=== PATIENT | male | born 1940 | race Caucasian/White ===

== ENCOUNTER → 2018-08-13 07:04 | Outpatient (CLI) | payer MEDICARE, OTHER, SELFPAY ==
[2018-08-13 08:23] LABS: Alanine Aminotransferase 33 IU/L (21-72); Albumin 4.2 g/dL (3.5-5.0); Albumin Globulin Ratio 1.5 (1.0-2.8); Alkaline Phosphatase 38 U/L (38-126); Aspartate Aminotransferase 28 IU/L (17-59); BUN Creatinine Ratio 21.1 (6-22); Bilirubin Total 0.5 mg/dL (0.2-1.3); Blood Urea Nitrogen 19 mg/dL (9-20); Calcium 9.3 mg/dL (8.4-10.2); Carbon Dioxide 31 mmol/L (22-32); Chloride 103 mmol/L (98-107); Cholesterol 168 mg/dL (140-199); Estimated Glomerular Filt Rate > 60.0 mL/min (>60); Globulin 2.8 g/dL (1.7-4.1); Glucose 104 mg/dL (80-110); HDL Cholesterol 58 mg/dL (40-60); HEMOLYSIS < 15 (0-50); LDL Cholesterol Calculated 98 mg/dL (<100); Potassium 4.3 mmol/L (3.4-5.1); Sodium 143 mmol/L (137-145); Triglycerides 61 mg/dL (35-150)
[2018-08-13 08:50] LABS: Prostate Specific Antigen Scrn 1.48 ng/mL (0.1-4.0)
== END ==
PROVIDERS: PCP Internal Medicine; Visit Provider Internal Medicine
DX: E78.2 Mixed hyperlipidemia (principal); N45.1 Epididymitis; Z12.5 Encounter for screening for malignant neoplasm of prostate
CPT/HCPCS: 36415; 80053; 80061; G0103

== ENCOUNTER → 2019-04-29 08:42 | Outpatient (CLI) | payer MEDICARE, OTHER, SELFPAY | PROVIDERS: PCP Internal Medicine; Visit Provider Physician Assistant | DX: L98.9 Disorder of the skin and subcutaneous tissue, unspecified (principal) | CPT/HCPCS: 87070; 87205 ==

== ENCOUNTER → 2019-09-02 07:02 | Outpatient (CLI) | payer MEDICARE, OTHER, SELFPAY ==
[2019-09-02 09:06] LABS: Alanine Aminotransferase 29 IU/L (<50); Albumin 4.3 g/dL (3.5-5.0); Albumin Globulin Ratio 1.5 (1.0-2.8); Alkaline Phosphatase 46 U/L (38-126); Aspartate Aminotransferase 32 IU/L (17-59); Bilirubin Total 0.6 mg/dL (0.2-1.3); Blood Urea Nitrogen 21 mg/dL (9-20); Calcium 9.2 mg/dL (8.4-10.2); Carbon Dioxide 30 mmol/L (22-32); Chloride 102 mmol/L (98-107); Cholesterol 175 mg/dL (140-199); Estimated Glomerular Filt Rate > 60.0 mL/min (>60); Globulin 2.9 g/dL (1.7-4.1); Glucose 111 mg/dL (80-110); HDL Cholesterol 54 mg/dL (40-60); HEMOLYSIS < 15 (0-50); LDL Cholesterol Calculated 110 mg/dL (<100); Potassium 4.1 mmol/L (3.4-5.1); Sodium 139 mmol/L (137-145); Total Protein 7.2 g/dL (6.3-8.2); Triglycerides 57 mg/dL (35-150)
== END ==
PROVIDERS: PCP Internal Medicine; Visit Provider Internal Medicine
DX: Z13.6 Encounter for screening for cardiovascular disorders (principal)
CPT/HCPCS: 36415; 80053; 80061

== ENCOUNTER → 2019-12-08 10:08 | Outpatient (CLI) | payer MEDICARE, OTHER, SELFPAY ==
[2019-12-08 10:48] LABS: Influenza A - CEPHEID Flu A NEGATIVE (NEGATIVE); Influenza B - CEPHEID Flu B NEGATIVE (NEGATIVE)
== END ==
PROVIDERS: PCP Internal Medicine; Referring Provider Internal Medicine; Visit Provider Internal Medicine
DX: J10.1 Influenza due to other identified influenza virus with other respiratory manifestations (principal)
CPT/HCPCS: 87502

== ENCOUNTER → 2020-06-23 17:06 | Outpatient (CLI) | payer MEDICARE, OTHER, SELFPAY | PROVIDERS: PCP Internal Medicine; Visit Provider Family Medicine | DX: N39.0 Urinary tract infection, site not specified (principal); N45.1 Epididymitis | CPT/HCPCS: 87086 ==

== ENCOUNTER → 2020-09-09 07:07 | Outpatient (CLI) | payer MEDICARE, OTHER, SELFPAY ==
[2020-09-09 08:32] LABS: Alanine Aminotransferase 35 IU/L (<50); Albumin 4.2 g/dL (3.5-5.0); Albumin Globulin Ratio 1.4 (1.0-2.8); Alkaline Phosphatase 46 U/L (38-126); Aspartate Aminotransferase 35 IU/L (17-59); BUN Creatinine Ratio 25.5 (6-22); Bilirubin Total 0.7 mg/dL (0.2-1.3); Blood Urea Nitrogen 25 mg/dL (9-20); Calcium 9.1 mg/dL (8.4-10.2); Carbon Dioxide 32 mmol/L (22-32); Chloride 105 mmol/L (98-107); Cholesterol 171 mg/dL (140-199); Estimated Glomerular Filt Rate > 60.0 mL/min (>60); Glucose 104 mg/dL (80-110); HDL Cholesterol 67 mg/dL (40-60); HEMOLYSIS < 15 (0-50); LDL Cholesterol Calculated 90 mg/dL (<100); Potassium 4.4 mmol/L (3.4-5.1); Sodium 140 mmol/L (137-145); Total Protein 7.2 g/dL (6.3-8.2); Triglycerides 69 mg/dL (35-150)
== END ==
PROVIDERS: PCP Internal Medicine; Referring Provider Internal Medicine; Visit Provider Internal Medicine
DX: E78.2 Mixed hyperlipidemia (principal); K21.9 Gastro-esophageal reflux disease without esophagitis; N13.8 Other obstructive and reflux uropathy; N40.1 Benign prostatic hyperplasia with lower urinary tract symptoms
CPT/HCPCS: 36415; 80053; 80061

== ENCOUNTER → 2021-07-05 10:47 | Outpatient (CLI) | payer MEDICARE, OTHER, SELFPAY ==
[2021-07-05 12:04] LABS: COVID19 -Nasal RAPID Negative (Negative)
== END ==
PROVIDERS: PCP Internal Medicine; Visit Provider Physician Assistant
DX: Z20.822 Contact with and (suspected) exposure to COVID-19 (principal)
CPT/HCPCS: 87635

== ENCOUNTER → 2022-05-03 06:54 | Outpatient (CLI) | payer MEDICARE, OTHER, SELFPAY ==
[2022-05-03 08:38] LABS: Alanine Aminotransferase 37 IU/L (<50); Albumin 3.9 g/dL (3.5-5.0); Albumin Globulin Ratio 1.4 (1.0-2.8); Alkaline Phosphatase 43 U/L (38-126); Aspartate Aminotransferase 35 IU/L (17-59); BUN Creatinine Ratio 17.7 (6-22); Bilirubin Total 0.5 mg/dL (0.2-1.3); Blood Urea Nitrogen 20 mg/dL (9-20); Carbon Dioxide 29 mmol/L (22-32); Chloride 106 mmol/L (98-107); Cholesterol 163 mg/dL (140-199); Estimated Glomerular Filt Rate > 60 mL/min (>60); Globulin 2.7 g/dL (1.7-4.1); Glucose 100 mg/dL (80-110); HDL Cholesterol 65 mg/dL (40-60); HEMOLYSIS < 15 (0-50); LDL Cholesterol Calculated 83 mg/dL (<100); Potassium 4.6 mmol/L (3.4-5.1); Sodium 140 mmol/L (137-145); Total Protein 6.6 g/dL (6.3-8.2); Triglycerides 75 mg/dL (35-150)
== END ==
PROVIDERS: PCP Internal Medicine; Referring Provider Internal Medicine; Visit Provider Internal Medicine
DX: E78.2 Mixed hyperlipidemia (principal)
CPT/HCPCS: 36415; 80053; 80061

== ENCOUNTER → 2023-01-18 06:34 | Outpatient (CLI) | payer MEDICARE, OTHER, SELFPAY ==
--- NOTE | 2023-01-18 | DI.ECHO.S_ITS ---
+ + [facility] : : [place] : : [place] : : [id number] : : Phone: [phone] Echocardiogram Report + + :Name: VEGA GARDNER I Study Date: 01/18/2023 Height: 67 in : :[facility] ReadingLocation: Weight: 155 lb : : Gender: Male BSA: 1.8 m2 : :: 1940 Age: 82 yrs BP: 122/80 mmHg: :Reason For Study: MURMUR HR: 55 : :Ordering Physician: KRISTINA, : :DEBI Performed By: BRETT MEADOWS : :Referring: DEBI ACEVEDO : + + Interpretation Summary 1) Normal left ventricular thickness, size, wall motion, and systolic function (EF 55-60%). 2) The right ventricle is mildly dilated. The right ventricular systolic function is normal. 3) There is mild aortic stenosis (valve area 1.7cm2, mean gradient 12mmHg, severity ratio 0.,51). 4) No prior Echo available for comparison. Procedure: A two-dimensional transthoracic echocardiogram with color flow and Doppler was performed. The study quality was technically adequate. There is no prior echocardiogram noted for this patient. The patient was in normal sinus rhythm during the exam. Left Ventricle: The left ventricle is normal in size and wall thickness. Left ventricular systolic function is normal. The ejection fraction is estimated to be 55-60%. Left ventricular wall motion is normal. Diastolic parameters suggest a relaxation abnormality of the left ventricle, consistent with probable normal filling pressures. Right Ventricle: The right ventricle is mildly dilated. The right ventricular systolic function is normal. Atria: Both atria are normal in size. Mitral Valve: The mitral valve leaflets appear mildly thickened, but open well. There is trace mitral regurgitation. Aortic Valve: The aortic valve is mildly calcified. There is mild aortic stenosis. The aortic valve area indexed to the BSA is 0.94 . The peak aortic velocity is 2.3 m/sec. The aortic valve mean gradient is 12 mmHg. There is mild aortic regurgitation. Tricuspid Valve: The tricuspid valve is normal in structure and function. There is mild tricuspid regurgitation. The right ventricular systolic pressure is estimated to be at least 22 mmHg based on an estimated right atrial pressure of 3 mm Hg. Pulmonic Valve: The pulmonic valve is not well visualized. There is mild pulmonic regurgitation. Great Vessels: The aortic root is normal size. The ascending aorta is normal in size. The IVC is of normal diameter and collapses greater than 50% with a sniff. This suggests a low right atrial pressure of 3 mm Hg. Pericardium/ Pleura There is no pericardial effusion. There is no pleural effusion. MMode/2D Measurements & Calculations LVIDd: 4.2 cm LVOT diam: 2.1 cm LVIDs: 2.6 cm Ao root diam: 3.5 cm FS: 38.1 % asc Aorta Diam: 3.3 cm IVSd: 1.0 cm LVPWd: 0.90 cm LV moise. diameter/BSA (cm/m^2): 2.3 LV sys. diameter/BSA (cm/m^2): 1.4 LA A2 area: 12.6 cm2 RA long axis: 4.0 cm LA A4 area: 10.9 cm2 LA length (vol): 4.1 cm LA vol: 28.4 ml LA vol index: 15.7 ml/m2 LVLs ap4: 6.7 cm LVLd ap2: 8.0 cm LVLs ap2: 6.6 cm TAPSE_phl: 2.3 cm Doppler Measurements & Calculations Ao V2 max: 229.0 cm/sec LVOT Max [place]: 106.0 cm/sec Ao V2 mean: 167.0 cm/sec LV V1 max P.5 mmHg Ao max P.0 mmHg LV V1 VTI: 25.8 cm Ao mean P.0 mmHg REKHA(I,D): 1.7 cm2 Ao V2 VTI: 50.5 cm REKHA(V,D): 1.5 cm2 sev ratio: 0.51 REKHA indexed to BSA (cm^2/m^2): 0.94 MV E max [place]: 59.6 cm/sec TR max [place]: 217.0 cm/sec MV A max [place]: 101.0 cm/sec TR max P.8 mmHg MV E/A: 0.59 PA V2 max: 112.0 cm/sec Med Peak E' [place]: 3.9 cm/sec PA V2 mean: 82.5 cm/sec E/E' med: 15.4 PA mean P.0 mmHg Lat Peak E' [place]: 7.3 cm/sec PA pr(Accel): 15.5 mmHg E/E' lat: 8.2 E/e' average: 11.8 MV dec time: 0.27 sec SV(LVOT): 86.0 ml AV VR_phl: 0.45 REKHA(VTI)/BSA_phl: 0.77 MV P1/2t-pr_phl: 79.0 msec Reading Physician:10:01 AM
== END ==
PROVIDERS: PCP Internal Medicine; Referring Provider Family Medicine; Visit Provider Family Medicine
DX: R01.1 Cardiac murmur, unspecified (principal); I51.7 Cardiomegaly; I35.0 Nonrheumatic aortic (valve) stenosis
CPT/HCPCS: 93306

== ENCOUNTER → 2023-08-17 06:41 | Outpatient (CLI) | payer MEDICARE, OTHER, SELFPAY ==
--- NOTE | 2023-08-17 | DI.US.S_ITS ---
PROCEDURE: US ARTERIAL DUPLEX LE RT INDICATIONS: PAIN IN RIGHT KNEE TECHNIQUE: Color and pulse Doppler interrogation was performed of the right lower extremity arterial system, with image documentation. COMPARISON: None. FINDINGS: Common femoral artery: 74.1 cm/sec, with biphasic flow. Deep femoral artery: 51.3 cm/sec, with biphasic flow. Proximal superficial femoral artery: 68.9 cm/sec, with biphasic flow. Mid superficial femoral artery: 76.8 cm/sec, with biphasic flow. Distal superficial femoral artery: 69.9 cm/sec, with biphasic flow. Popliteal artery: 63.2 cm/sec, with biphasic flow. Posterior tibial artery: 104.1 cm/sec, with by phase flow. Anterior tibial artery/dorsalis pedis: 52.4 cm/sec, with monophasic flow. Giles-scale imaging description: No focal hemodynamically significant stenosis. Mild atheromatous plaque throughout. IMPRESSION: Mild atheromatous plaque without focal hemodynamically significant stenosis. Overall biphasic waveforms throughout with the exception of the anterior tibial artery where monophasic waveforms are present suggesting moderate peripheral vascular disease. Dictated by: Trina Brothers M.D. on 08/17/2023 at 9:56 Approved by: Trina Brothers M.D. on 08/17/2023 at 9:58
== END ==
PROVIDERS: PCP Internal Medicine; Referring Provider Family Medicine; Visit Provider Family Medicine
DX: I73.9 Peripheral vascular disease, unspecified (principal); M25.561 Pain in right knee
CPT/HCPCS: 93926

== ENCOUNTER → 2023-08-21 13:33 | Outpatient (CLI) | payer MEDICARE, OTHER, SELFPAY ==
--- NOTE | 2023-08-21 | DI.MRI.S_ITS ---
PROCEDURE: MR KNEE RT WO CON INDICATIONS: Pain in right knee TECHNIQUE: Noncontrast sagittal PD fast spin echo and T2 fast spin echo with fat saturation, sagittal 3-D FLASH with fat saturation; coronal T1 spin echo and PD fast spin echo with fat saturation, and axial PD fast spin echo with fat saturation through the knee. COMPARISON: None. FINDINGS: Image quality: Excellent. Menisci: Oblique tear involving posterior horn of medial meniscus is seen extending to inferior articulating surface. Complex tear also seen involving anterior horn of lateral meniscus extending to both superior and inferior articulating surfaces. The meniscal root ligaments appear intact. Cruciate ligaments: The anterior cruciate ligament is thickened with intrasubstance T2 hyperintense signal. The posterior cruciate ligament is intact. Medial structures: The medial collateral ligament appears thickened with adjacent soft tissue edema. The posterior oblique ligament, semimembranosus tendon insertions, oblique popliteal ligament, and meniscocapsular junction appear intact. Visualized portions of the pes anserinus tendons appear normal. No abnormal bursal fluid. Lateral structures: The lateral collateral ligament, long and short heads of the biceps femoris tendon appear intact. The popliteus tendon appears normal; the popliteofibular ligament appears intact. Iliotibial band appears normal. Anterior structures: The quadriceps and patellar tendons appear intact. Patellar alignment is normal. No femoral trochlear dysplasia or ventral trochlear prominence. No edema in the infrapatellar fat pad. Bones and cartilage: Osteochondral injury involving anterior weight-bearing portion of lateral femoral condyle is seen. No fracture or dislocation. 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 Joint space: There is moderate to large knee joint fluid. There is a 2.4 x 2.3 x 4.4 cm Enrique's cyst. Normal appearing synovial plicae are incidentally noted. IMPRESSION: 1. Oblique tear involving posterior horn of medial meniscus extending to inferior articulating surface. Complex tear involving anterior horn of lateral meniscus extending to both superior and inferior articulating surfaces. 2. Sprain/low-grade intrasubstance partial-thickness tear involving anterior cruciate ligament. No ACL rupture. The PCL is intact. 3. Low to moderate grade MCL sprain/partial-thickness tear. 4. [id number]-[id number] tricompartmental osteoarthritis and chondromalacia most notably in medial femoral tibial compartment. Osteochondral injury involving anterior aspect of lateral femoral condyle. Moderate joint effusion, no loose bodies. Small Enrique's cyst as above. Dictated by: Eugenio Jackman M.D. on 08/21/2023 at 17:14 Approved by: Eugenio Jackman M.D. on 08/21/2023 at 17:19
== END ==
PROVIDERS: PCP Internal Medicine; Referring Provider Family Medicine; Visit Provider Family Medicine
DX: S83.271A Complex tear of lateral meniscus, current injury, right knee, initial encounter (principal); S83.241A Other tear of medial meniscus, current injury, right knee, initial encounter; S83.511A Sprain of anterior cruciate ligament of right knee, initial encounter; S83.411A Sprain of medial collateral ligament of right knee, initial encounter; M17.11 Unilateral primary osteoarthritis, right knee; M94.261 Chondromalacia, right knee; M71.21 Synovial cyst of popliteal space [Baker], right knee; M25.461 Effusion, right knee; M25.561 Pain in right knee
CPT/HCPCS: 73721

== ENCOUNTER → 2024-07-04 12:49 | Outpatient (CLI) | payer MEDICARE, OTHER, SELFPAY | PROVIDERS: PCP Family Medicine; Visit Provider Urology | DX: R39.9 Unspecified symptoms and signs involving the genitourinary system (principal) | CPT/HCPCS: 87086 ==

== ENCOUNTER 2024-11-25 08:25 | Emergency (ER) | payer MEDICARE, OTHER, SELFPAY ==
[2024-11-25] VITALS (7 sets, daily range): BP systolic 158–192; BP diastolic 70–78; PULSE 55–64; RESP 16–22; TEMP 36.6–36.9; O2SAT 93–100; BMI 23.8
--- NOTE | 2024-11-25 09:11 | ED_ITS ---
HPI - Male Genitourinary General Chief complaint: Urogenital-Male Stated complaint: Lower RT side back pain Time Seen by Provider: 11/25/24 09:03 Source: patient, RN notes reviewed and old records reviewed Mode of arrival: Family Vehicle Limitations: no limitations History of Present Illness HPI Narrative: 83-year-old male history of GERD, dyslipidemia, chronic epididymitis, hypertension, IBS presents with complaint of persistent right flank pain for the past 3 days. Patient states it is become more persistent into the 3rd day. No fevers or chills. No nausea or vomiting. No chest pain or shortness of breath. No syncope. Patient states he has had bowel movements regularly, no black or bloody stools, no diarrhea or constipation. No dysuria urgency or frequency. States pain does radiate around towards the front and towards the testicle. Has had kidney stones removed in the past but because of chronic epididymitis not because he would active stones traveling. Patient has seen Urology with Dr. Braswell here at [facility] a couple months ago. Home medications include Prilosec, Pepcid, calcium, Zocor, Flomax, Flexeril PRN, losartan, Levsin. Patient has a reported allergy to ampicillin although he states it was a long time ago. No tobacco, does drink alcohol, no recreational drugs. Related Data Home Medications Medication Instructions Recorded Confirmed psyllium husk (aspartame) 3.4 8 gram PO DAILY 09/05/19 07/04/24 gram/5.8 gram oral powder (Metamucil [facility] Fiber) Calcium Citrate + Zinc 1 tab PO DAILY 09/14/20 07/04/24 famotidine 20 mg tablet (Pepcid) 40 mg PO BEDTIME 09/14/20 07/04/24 Previous Rx's Medication Instructions Recorded hyoscyamine sulfate 0.125 mg 0.125 mg PO TID PRN dyspepsia #90 03/09/22 tablet (Oscimin) tabs cyclobenzaprine 10 mg tablet 10 mg PO ONCE #90 tabs 06/22/22 omeprazole 40 mg capsule,delayed 40 mg PO BID #180 caps 06/22/22 release simvastatin 20 mg tablet 20 mg PO Q DAY #90 tabs 06/22/22 tamsulosin 0.4 mg capsule 0.4 mg PO DAILY #90 caps 06/22/22 ciclopirox 8 % topical solution 1 applic topical BEDTIME #6.6 mL 09/19/22 naproxen 500 mg tablet 500 mg PO BID PRN pain #60 tabs 11/07/22 sildenafil 100 mg tablet 100 mg PO DAILY PRN sexual 07/04/24 activity #30 tabs levofloxacin 500 mg tablet 500 mg PO DAILY 7 days #7 tabs 11/25/24 Allergies Allergy/AdvReac Type Severity Reaction Status Date / Time ampicillin [AMPICILLIN] Allergy Mild RASH Verified 11/25/24 08:46 Review of Systems Review of Systems ROS Unobtainable: All systems reviewed & are unremarkable except as noted in HPI and below Patient History Medical History Diverticular disease of colon Vision disorder Mumps (~1949) Measles (~1949) Chicken pox (~1949) Recurrent sinusitis (~1969) Hearing loss (~1967) Irritable bowel syndrome (~1979) Hemorrhoid (~2013) Chronic back pain (~1969) Erectile dysfunction Kidney stones Epididymitis (05/08/14) Mixed hyperlipidemia Irritable bowel syndrome (06/02/11) History of adenomatous polyp of colon (06/02/11) Gastroesophageal reflux disease without esophagitis (06/02/11) Surgical History Anesthesia Status post colonoscopy (03/01/11) Status post colonoscopy (~2005) History of cataract removal with insertion of prosthetic lens (12/04/12) History of cataract removal with insertion of prosthetic lens (12/18/12) Status post hernia repair (~09/2008) Family History Brother Age: 82 Multiple myeloma Father Type II diabetes mellitus Diabetes mellitus Mother Lung cancer Social History marital status: number of children: 2 household members: spouse lives independently: Yes caregiver/support person: No housing: house pets and animals: No education level: other (Graduate School) occupational status: other (Retired) Previous occupational history: [employer] in [employer] sarai/episcopalian: Roman Catholic travel history: other (Travels a lot.) leisure activities: exercise (Hiking, Biking, Skiing) and other (Traveling) Smoking Status: Former smoker Tobacco: How many years used: 10 Smokeless tobacco user: other (Cigarettes, Cigars.) quit status: quit date established (~1970) second hand exposure: Yes (When younger.) alcohol intake: current (A drink every day.) substance use type: does not use caffeine: Yes Type(s) of exercise: none Smoking Status: Former smoker tobacco type: cigarettes Exam Narrative Exam Narrative: GENERAL: Alert and oriented x three, well-appearing male in no acute distress HEENT: Head normocephalic, atraumatic, EOMI, pupils reactive, face symmetric, moist mucous membranes NECK: Supple, full range of motion CARDIOVASCULAR: Regular rate and rhythm without murmurs, rubs or gallops. RESPIRATORY: Breath sounds equal bilaterally, no wheezes rales or rhonchi. ABDOMEN: Soft, nontender. Normoactive bowel sounds all 4 quadrants. No guarding or rebound, rigidity, no mass, no pulsatile bruit or mass. : No CVA tenderness EXTREMITIES: Normal range of motion, no clubbing or edema. Neurovascularly intact NEUROLOGICAL: Cranial nerves II through XII grossly intact. Moving all extremities SKIN: Warm, dry, no petechiae, no rashes or lesions noted. Initial Vital Signs Initial Vital Signs: Vital Signs Pulse Rate 61 11/25/24 08:36 Pulse Oximetry 96 11/25/24 08:36 Course Orders Ordered: ED Orders 11/25/24 09:30 CBC Auto Diff [Complete Blood Count AUTO DIFF] Stat CMP [Comprehensive Metabolic Panel] Stat Lipase Stat Discontinued Medications Ondansetron HCl (Ondansetron 4 Mg/2 Ml Inj) 4 mg IV NOW PRN PRN Reason: Nausea And Vomiting Ondansetron HCl (Ondansetron 4 Mg Odt) 4 mg SL NOW PRN PRN Reason: Nausea And Vomiting Vital Signs Vital signs: Vital Signs - 8 hr 11/25/24 10:20 Temperature 98.4 F Pulse Rate 55 L Respiratory Rate 22 Blood Pressure 187/78 H Pulse Oximetry 98 Oxygen Delivery Method Room Air MDM - Male Genitourinary Lab Data 11/25/24 09:30 11/25/24 09:30 Labs: Lab Results 11/25/24 11/25/24 Range/Units 08:50 09:30 WBC 7.2 (4.5-11.0) X10^3/uL RBC 4.39 L (4.5-5.9) X10^6/uL Hgb 15.2 (13.5-17.5) g/dL Hct 44.5 (41-53) % MCV 101.4 H (80-100) fL MCH 34.6 H (26-34) PG MCHC 34.1 (30-36) % RDW 13.2 (11.6-14.8) % Plt Count 191 (150-400) X10^3/uL Neut % (Auto) 63.1 (50-75) % Lymph % (Auto) 24.5 L (25-40) % Mcmullen % (Auto) 8.8 (3-14) % Eos % (Auto) 2.6 (2-4) % Baso % (Auto) 1.0 (0-2) % Neut # (Auto) 4500 (9511-3475) /uL Lymph # (Auto) 1800 (8766-6583) /uL Mcmullen # (Auto) 600 (0-900) /uL Eos # (Auto) 200 (0-450) /uL Baso # (Auto) 100 (0-100) /uL Sodium 137 (137-145) mmol/L Potassium 4.4 (3.4-5.1) mmol/L Chloride 104 (98-107) mmol/L Carbon Dioxide 27 (22-32) mmol/L BUN 22 H (9-20) mg/dL Creatinine 1.09 (0.66-1.25) mg/dL Estimated GFR > 60 (>60) mL/min BUN/Creatinine Ratio 20.2 (6-22) Glucose 107 (80-110) mg/dL Calcium 9.5 (8.4-10.2) mg/dL Total Bilirubin 0.8 (0.2-1.3) mg/dL AST 44 (17-59) IU/L ALT 42 (<50) IU/L Alkaline Phosphatase 48 (38-126) U/L Total Protein 7.7 (6.3-8.2) g/dL Albumin 4.5 (3.5-5.0) g/dL Globulin 3.2 (1.7-4.1) g/dL Albumin/Globulin Ratio 1.4 (1.0-2.8) Lipase 59 (23-300) U/L Urine RBC 1-5/hpf (0-5/HPF) Urine WBC 1-5/hpf (0-5/HPF) Ur Squamous Epith Cells 0-1 /hpf (0-5/HPF) Urine Bacteria Occasional (0-1) (None) Ur Culture Indicated? Cult not indicated Vol Urine Centrifuged 10ml (spun) Urine Dip Bedside Urine Glucose Negative Bedside Urine Bilirubin - Negative Bedside Urine Ketone - Negative Urine Specific Limestone 1.015 Bedside Urine Occult Blood - Negative Bedside Urine pH 7.0 Bedside Urine Protein - Negative Bedside Urine Urobilinogen - Negative Bedside Urine Nitrite - Negative Bedside Urine Leukocytes +++ 500 Esterase MDM Narrative Medical decision making narrative: 83-year-old male with 3 days of flank pain radiating towards the front patient's urine does show leukocyte esterase no blood on the initial dip urine microscopy shows 1-5 red cells 1-5 white cells 1 squamous occasional bacteria Because of patient's age and potential for kidney stone with infection further workup was ordered. Labs show white count of 7.2 hemoglobin of 15.2 platelets are 191, CT KUB electrolytes are appropriate BUN 22 creatinine 1.09 glucose is 107 LFTs are all negative lipase is 59. Urine urine shows leukocyte esterase, no nitrates 1-5 RBCs 1-5 WBCs 1 squamous occasional bacteria. Discussed with patient suspect he may have a UTI becoming a pyelonephritis we will treat with oral antibiotics. Patient is overall well-appearing nontoxic. Pain has been controlled he has not wanted anything here in the department. Discussed can try Tylenol and/or ibuprofen as needed. Discussed return precautions all questions answered. Discharge Plan Departure Patient Disposition: Home Clinical Impression: UTI (urinary tract infection) Instructions: DI for Urinary Tract Infection (UTI) Activity Restrictions/Additional Instructions: Follow up for recheck if your symptoms are not resolving. Your urine shows possible infection, take oral antibiotics until completed. Take once daily. [email or web address] [place] You can take acetaminophen and/or ibuprofen as needed for pain. Please return for fevers, any nausea or vomiting, rapidly worsening pain, black or bloody stools, difficulty or inability urinate,new rash or skin changes or other new or concerning changes Prescriptions: New levofloxacin 500 mg tablet 500 mg PO DAILY 7 Days Qty: 7 0RF No Action hyoscyamine sulfate [Oscimin] 0.125 mg tablet 0.125 mg PO TID PRN (Reason: dyspepsia) Qty: 90 3RF Rx Instructions: Generic Preferred. cyclobenzaprine 10 mg tablet 10 mg PO ONCE Qty: 90 3RF simvastatin 20 mg tablet 20 mg PO Q DAY Qty: 90 3RF tamsulosin 0.4 mg capsule 0.4 mg PO DAILY Qty: 90 3RF omeprazole 40 mg capsule,delayed release(DR/EC) 40 mg PO BID Qty: 180 3RF Metamucil [facility] Fiber 3.4 gram/5.8 gram powder 8 gram PO DAILY ciclopirox 8 % solution 1 applic topical BEDTIME Qty: 6.6 10RF naproxen 500 mg tablet 500 mg PO BID PRN (Reason: pain) Qty: 60 3RF Rx Instructions: with food famotidine [Pepcid] 20 mg tablet 40 mg PO BEDTIME Calcium Citrate + Zinc 1 tab PO DAILY sildenafil 100 mg tablet 100 mg PO DAILY PRN (Reason: sexual activity) Qty: 30 3RF Rx Instructions: administer 30 minutes to 4 hours before activity Referrals: Adia Montgomery MD [Primary Care Provider] - Stand Alone Forms: Patient Portal/API/Survey
--- NOTE | 2024-11-25 09:11 | DI.CT.S_ITS ---
PROCEDURE: CT KIDNEY URETER BLADDER (KUB) INDICATIONS: R flank pain, radiates to front/testicles TECHNIQUE: Axial sections were acquired from the lung bases to the pubic symphysis. Coronal and sagittal reformats were performed. For radiation dose reduction, the following was used: automated exposure control, adjustment of mA and/or kV according to patient size. COMPARISON: None. FINDINGS: Image quality: Diagnostic. Lower Chest: No significant findings. URINARY: Right Kidney: Very tiny punctate nonobstructing parenchymal stones, the largest of which is 2 mm in the lower pole. No hydronephrosis. Right Ureter: No hydroureter. Left Kidney: No stones or hydronephrosis. Left Ureter: No hydroureter. Bladder: Normal wall thickness. No stones. ABDOMEN: Liver: No contour-deforming solid mass. Mild diffuse hepatic steatosis. Gallbladder: No radiopaque gallstones or wall thickening. Biliary ducts: No biliary dilation. Pancreas: No ductal dilation. Spleen: Size is within normal limits. Adrenal Glands: No adrenal nodules. Stomach and Bowel: Normal colonic caliber, without significant wall thickening. Normal appendix. Moderate to severe sigmoid diverticulosis. Diffuse colonic diverticulosis. No acute diverticulitis identified. Large right colonic and transverse colonic fecal load. Peritoneum: No abnormal intraperitoneal fluid. No free air. Ventral Wall: No hernia. Abdominal Nodes: No enlarged retroperitoneal or mesenteric lymph nodes. Vessels: Aorta and inferior vena cava are normal in size. PELVIS: Pelvic Organs: Kebx-mu-liusjgud prostatomegaly.. Pelvic Nodes: Unremarkable. Miscellaneous: No inguinal hernias are seen. Bones: Unremarkable. IMPRESSION: 1. No renal stone, ureteral stone, or hydronephrosis. 2. No acute abdominal process. 3. Diverticulosis. 4. Mild diffuse hepatic steatosis. 5. Prostatomegaly. Dictated by: Miguel Forrester M.D. on 11/25/2024 at 9:46 Approved by: Miguel Forrester M.D. on 11/25/2024 at 9:52
[2024-11-25 09:36] LABS: Bacteria Urine Occasional (0-1); Culture Indicated Urine Cult Not Indicated; RBC Urine 1-5/HPF (0-5/HPF); Squamous Epithelial Cell Urine 0-1 /HPF (0-5/HPF); Urine Volume 10mL (spun); WBC Urine 1-5/HPF (0-5/HPF)
[2024-11-25 09:40] LABS: Add Manual Diff / Slide Review NO; Basophils Absolute Auto 100 /uL (0-100); Eosinophils Absolute Auto 200 /uL (0-450); Eosinophils Percent Auto 2.6 % (2-4); Hematocrit 44.5 % (41-53); Hemoglobin 15.2 g/dL (13.5-17.5); Lymphocytes Absolute Auto 1800 /uL (1100-4500); Lymphocytes Percent Auto 24.5 % (25-40); Mean Corpuscular HGB Conc 34.1 % (30-36); Mean Corpuscular Hemoglobin 34.6 PG (26-34); Mean Corpuscular Volume 101.4 fL (80-100); Monocytes Absolute Auto 600 /uL (0-900); Monocytes Percent Auto 8.8 % (3-14); Neutrophils Absolute Auto 4500 /uL (1500-7000); Neutrophils Percent Auto 63.1 % (50-75); Platelet Count 191 X10^3/uL (150-400); Red Blood Cell Count 4.39 X10^6/uL (4.5-5.9); Red Cell Distribution Width 13.2 % (11.6-14.8); White Blood Cell Count 7.2 X10^3/uL (4.5-11.0)
[2024-11-25 09:50] LABS: Alanine Aminotransferase 42 IU/L (<50); Albumin 4.5 g/dL (3.5-5.0); Albumin Globulin Ratio 1.4 (1.0-2.8); Alkaline Phosphatase 48 U/L (38-126); Aspartate Aminotransferase 44 IU/L (17-59); BUN Creatinine Ratio 20.2 (6-22); Bilirubin Total 0.8 mg/dL (0.2-1.3); Blood Urea Nitrogen 22 mg/dL (9-20); Calcium 9.5 mg/dL (8.4-10.2); Carbon Dioxide 27 mmol/L (22-32); Chloride 104 mmol/L (98-107); Estimated Glomerular Filt Rate > 60 mL/min (>60); Globulin 3.2 g/dL (1.7-4.1); Glucose 107 mg/dL (80-110); HEMOLYSIS 16 (0-50); Lipase 59 U/L (23-300); Potassium 4.4 mmol/L (3.4-5.1); Sodium 137 mmol/L (137-145); Total Protein 7.7 g/dL (6.3-8.2)
== END 2024-11-25 10:21 | disposition home or self-care (01) ==
PROVIDERS: Emergency Provider Emergency Medicine; PCP Family Medicine
DX: N39.0 Urinary tract infection, site not specified (principal); K21.9 Gastro-esophageal reflux disease without esophagitis; E78.5 Hyperlipidemia, unspecified; I10 Essential (primary) hypertension; Z87.442 Personal history of urinary calculi
CPT/HCPCS: 36415; 74176; 80053; 81003; 81015; 83690; 85025; 99283; 99284

== ENCOUNTER → 2024-12-19 16:55 | Outpatient (CLI) | payer MEDICARE, OTHER, SELFPAY ==
--- NOTE | 2024-12-19 16:57 | DI.RAD.S_ITS ---
PROCEDURE: XR LUMBAR SPINE 2-3V INDICATIONS: BACK HIP PAIN TECHNIQUE: 3 views of the lumbar spine were acquired. COMPARISON: [facility], CT, CT KIDNEY URETER BLADDER (KUB), 11/25/2024, 9:13. FINDINGS: Bones: 5 [id number] vertebrae are present. There is normal bony alignment. No vertebral body compression fractures. Mild lower lumbar facet arthropathy. No suspicious bony lesions. Soft tissues: Overlying bowel gas pattern is normal. No suspicious soft tissue calcifications. IMPRESSION: No acute bony abnormality. Mild lower lumbar facet arthropathy. Dictated by: Miguel Forrester M.D. on 12/20/2024 at 6:45 Approved by: Miguel Forrester M.D. on 12/20/2024 at 6:48
== END ==
PROVIDERS: PCP Family Medicine; Referring Provider Family Medicine; Visit Provider Family Medicine
DX: M47.816 Spondylosis without myelopathy or radiculopathy, lumbar region (principal); M54.50 Low back pain, unspecified; M25.551 Pain in right hip
CPT/HCPCS: 72100

== ENCOUNTER → 2025-03-14 06:46 | Outpatient (CLI) | payer MEDICARE, OTHER, SELFPAY ==
--- NOTE | 2025-03-14 | DI.ECHO.S_ITS ---
[facility] : : [id number] : : [place] : : [id number] : : Phone: [phone] Echocardiogram Report + + :Name: VEGA GARDNER I Study Date: 03/14/2025 Height: 67 in : :[facility] ReadingLocation: Weight: 155 lb : : Gender: Male BSA: 1.8 m2 : :: 1940 Age: 84 yrs BP: 172/78 mmHg: :Reason For Study: SYSTOLIC MURMUR : :Ordering Physician: KRISTINA, : :DEBI Performed By: Evelyn Beltran : :Referring: DEBI ACEVEDO : + + Interpretation Summary The ejection fraction is estimated to be 55-60%. Diastolic parameters suggest probable normal left ventricular diastolic function and normal filling pressures. The right ventricle is normal in size and function. There is mild to moderate aortic stenosis. There is mild aortic regurgitation. Pulmonary artery pressures cannot be estimated because of the lack of a measurable TR jet velocity but the IVC suggests a CVP of around 3 mmHg. Compared to the prior study 01/18/2023, aortic valve gradient has increased. Procedure: A two-dimensional transthoracic echocardiogram with color flow and Doppler was performed. The study quality was technically adequate. Comparison is made with the echocardiogram of 01/18/2023. The patient was in sinus bradycardia with heart rates between 58-64 bpm during the exam. Left Ventricle: Left ventricular wall thickness is borderline increased. The left ventricle is normal in size. The estimated left ventricular end diastolic volume is 73 ml. The ejection fraction is estimated to be 55-60%. Diastolic parameters suggest probable normal left ventricular diastolic function and normal filling pressures. Right Ventricle: The right ventricle is normal in size and function. Atria: The left atrial size is normal. Right atrial size is normal. There is no Doppler evidence for an interatrial shunt. Mitral Valve: The mitral valve leaflets appear borderline thickened, but open well. There is no mitral regurgitation noted. Aortic Valve: The aortic valve is moderately calcified. The aortic valve is trileaflet. There is mild to moderately reduced leaflet mobility. There is mild to moderate aortic stenosis. The peak aortic velocity is 2.9 m/sec. The aortic valve mean gradient is 19 mmHg. The calculated aortic valve area is 1.1 cm2. There is mild aortic regurgitation. Tricuspid Valve: The tricuspid valve leaflets are thin and pliable. There is trace tricuspid regurgitation. Pulmonary artery pressures cannot be estimated because of the lack of a measurable TR jet velocity but the IVC suggests a CVP of around 3 mmHg. Pulmonic Valve: The pulmonic valve leaflets are thin and pliable; valve motion is normal. There is mild pulmonic regurgitation. Great Vessels: The aortic root is normal size. The dimensions of the ascending aorta are normal. The IVC is of normal diameter and collapses greater than 50% with a sniff. This suggests a low right atrial pressure of 3 mm Hg. Pericardium/ Pleura There is no pericardial effusion. There is no pleural effusion. MMode/2D Measurements & Calculations LVIDd: 3.7 cm LVOT diam: 2.1 cm LVIDs: 2.6 cm Ao root diam: 3.2 cm FS: 30.8 % asc Aorta Diam: 3.1 cm IVSd: 1.2 cm Ao Arch Diam (Prox Trans): 2.6 cm LVPWd: 0.98 cm LV moise. diameter/BSA (cm/m^2): 2.0 LV sys. diameter/BSA (cm/m^2): 1.4 LA A2 area: 15.0 cm2 RA long axis: 4.9 cm LA A4 area: 19.0 cm2 RA area: 15.6 cm2 LA length (vol): 5.4 cm RA vol: 42.2 ml LA vol: 44.8 ml RA : 23.2 ml/m2 LA vol index: 24.7 ml/m2 IVC diam: 1.0 cm RVD1 (basal): 3.4 cm RVD2 (mid): 2.9 cm TAPSE: 2.2 cm Doppler Measurements & Calculations Ao V2 max: 293.0 cm/sec LVOT Max [place]: 96.0 cm/sec Ao V2 mean: 200.2 cm/sec LV V1 max P.7 mmHg Ao max P.2 mmHg LV V1 VTI: 22.4 cm Ao mean P.8 mmHg REKHA(I,D): 1.3 cm2 Ao V2 VTI: 61.0 cm REKHA(V,D): 1.1 cm2 sev ratio: 0.37 REKHA indexed to BSA (cm^2/m^2): 0.70 AI P1/2t: 571.5 msec AI dec slope: 226.8 cm/sec2 MV E max [place]: 66.6 cm/sec TR max [place]: 221.4 cm/sec MV A max [place]: 106.0 cm/sec TR max P.6 mmHg MV E/A: 0.63 PA V2 max: 89.2 cm/sec Med Peak E' [place]: 5.4 cm/sec PA V2 mean: 61.1 cm/sec E/E' med: 12.2 PA mean P.8 mmHg Lat Peak E' [place]: 9.7 cm/sec PA pr(Accel): 35.3 mmHg E/E' lat: 6.9 E/e' average: 9.5 MV dec time: 0.23 sec SV(LVOT): 77.0 ml Reading Physician:08:29 PM
== END ==
LOC: ECHO 06:47
PROVIDERS: PCP Family Medicine; Referring Provider Family Medicine; Visit Provider Family Medicine
DX: I35.2 Nonrheumatic aortic (valve) stenosis with insufficiency (principal); I37.1 Nonrheumatic pulmonary valve insufficiency; R00.1 Bradycardia, unspecified; R01.1 Cardiac murmur, unspecified
CPT/HCPCS: 93306